=== PATIENT | female | born 1945 | race Caucasian/White ===

== ENCOUNTER → 2017-10-25 | Outpatient (CLI) | payer MEDICARE, OTHER ==
[~2017-10-25] MED LIST: ASPI325T17 PO; AZIT500T5 PO; CEFD300C37 PO; FERR325T18 PO; FURO-92 PO; FURO40TA6 PO; LISI1TAB7 PO; LISI5TAB7 PO; MAGN400T26 PO; METF500T9 PO; METFORMIN PO; Magnesium Oxide PO; PARO10TA56 PO; POLY17PO5 PO; POTA10TA5 PO; POTA20TA14 PO; SIMVASTATIN PO; TRAM50TA2 PO
[2017-10-25 16:56] LABS: ALANINE AMINOTRANSFERASE 23 U/L (12-78); ALBUMIN 3.8 g/dL (3.4-5.0); ANION GAP 3 mmol/L (5-15); CALCIUM 9.1 mg/dL (8.5-10.1); CHLORIDE 104 mmol/L (98-107); CREATININE 0.84 mg/dL (0.55-1.02)
[2017-10-25 16:58] LABS: ALKALINE PHOSPHATASE 112 U/L (45-117); BILIRUBIN,TOTAL 0.8 mg/dL (0.2-1.0); TOTAL PROTEIN 7.6 g/dL (6.4-8.2)
[2017-10-25 16:59] LABS: BASOPHILS # (AUTO) 0.08 x10^3/uL (0-0.1); BASOPHILS % (AUTO) 1 % (0-1); EOSINOPHILS # (AUTO) 0.32 x10^3/uL (0-0.4); EOSINOPHILS % (AUTO) 3 % (1-7); LYMPHOCYTES # (AUTO) 1.73 x10^3/uL (1-3.4); LYMPHOCYTES % (AUTO) 17 % (22-44); MD NO; MEAN CORPUSCULAR HEMOGLOBIN 33.1 pg (27.0-34.8); MEAN CORPUSCULAR VOLUME 97.3 fL (80-100); MEAN PLATELET VOLUME 8.4 fL (7.4-10.4); MONOCYTES # (AUTO) 0.65 x10^3/uL (0.2-0.8); MONOCYTES % (AUTO) 6 % (2-9); NEUTROPHILS # (AUTO) 7.55 x10^3/uL (1.8-6.8); NEUTROPHILS % (AUTO) 73 % (42-75); PLATELET COUNT 318 x10^3/uL (130-400)
[2017-10-25 17:33] LABS: MICROSCOPIC AUTO
[2017-10-25 17:40] LABS: CULTURE INDICATED? YES
== END | disposition home or self-care (01) ==
LOC: STAR 16:02
PROVIDERS: ATTEND Orthopaedic Surgery
DX: Z01.818 Encounter for other preprocedural examination (principal); M17.11 Unilateral primary osteoarthritis, right knee
CPT/HCPCS: 36415; 80053; 81001; 85025; 87081; 87086; 87147; 87806; 93005; G0475

== ENCOUNTER 2017-11-06 09:37 | Inpatient (IN) | payer MEDICARE, OTHER ==
[2017-10-25 16:46] VITALS: BP 114/75
[~2017-11-06] VITALS: Ht 162.6 cm; Wt 92.6 kg
[~2017-11-06 09:37] MED LIST changes: +ACETAMINOPHEN 500 MG TABLET PO ONE; +ALBUTEROL SULFATE 2.5 MG/3 ML NPPB PRN; +BACITRACIN 50,000 UNIT ONE; +BACTRIM PO; +BUPIVACAINE/PF 0.5% ONE; +CEFAZOLIN 1,000 MG ONE; +DEXAMETHASONE 4 MG/ML, 1ML ONE; +EPINEPHRINE 1 MG/ML, 1ML ONE; +FENTANYL PF 100 MCG/2ML IV PRN; +FENTANYL PF 100 MCG/2ML ONE; +FENTANYL PF 250 MCG/5ML ONE; +GABAPENTIN 300 MG CAPSULE PO ONE; +HALOPERIDOL 5 MG/ML IV PRN; +HYDROmorphone 2 MG/ML, 1ML ONE; +KETOROLAC 60 MG/2 ML ONE; +LABETALOL 5MG/ML, 20ML IV PRN; +LABETALOL 5MG/ML, 20ML ONE; +LACTATED RINGERS 1,000 ML IV SCH; +LIDOCAINE-MPF 1%, 2ML INFIL ONE; +LIDOCAINE-MPF 1%, 2ML ONE; +LIDOCAINE-MPF 2% ,5ML ONE; +MEPERIDINE/PF 25MG/0.5ML IVPush PRN; +MIDAZOLAM 1 MG/ML, 2ML ONE; +MUPIROCIN TP; +ONDANSETRON ODT 8 MG PO ONE; +PHENYLEPHRINE 10 MG/ML ONE; +PLEASE ENTER HEIGHT AND WEIGHT MC SCH; +PROMETHAZINE 25 MG/ML, 1ML IV PRN; +PROPOFOL 10 MG/ML, 20ML ONE; +ROCURONIUM 10MG/ML,5ML ONE; +ROPIvacaine/PF 0.2%, 20 ML ONE; +SODIUM CHLORIDE 0.9% 100 ML ONE; +TRANEXAMIC ACID 100 MG/ML, 10ML ONE; +VANCOMYCIN 1,000 MG ONE; +VANCOMYCIN PMX 1GM/200ML 200 ML IV STA; +hydrALAzine 20 MG/ML, 1ML IV PRN; +morphine SULFATE/PF 1 MG/ML, 10ML ONE
[2017-11-06] MEDS: HYDROmorphone 1 MG/ML, 1ML IV PRN ×2 (09:42→10:05)
[2017-11-06] MEDS ORDERED: LORazepam 2 MG/ML, 1ML IVPush PRN (10:00)
[2017-11-06] MEDS ORDERED: morphine SULFATE 10 MG/ML, 1ML IVPush PRN (10:00)
[2017-11-06] MEDS ORDERED: DIPHENHYDRAMINE 50 MG CAPSULE PO PRN (10:00)
[2017-11-06] MEDS ORDERED: ONDANSETRON 2MG/ML, 2ML IVPush PRN (10:00)
[2017-11-06] MEDS ORDERED: ZOLPIDEM 5MG TABLET PO PRN (10:00)
[2017-11-06] MEDS: SIMVASTATIN MC SCH ×2 (11:30→19:30)
[2017-11-06] MEDS ORDERED: metFORMIN 500 MG TABLET PO SCH ×2 (12:00→16:30)
[2017-11-06] MEDS ORDERED: FUROSEMIDE 40 MG TABLET PO SCH (12:00)
[2017-11-06] MEDS ORDERED: TRANEXAMIC ACID 1,000 MG in SODIUM CHLORIDE 0.9% 100 ML IV ONE (12:00)
[2017-11-06] MEDS ORDERED: LISINOPRIL 5 MG TABLET PO SCH ×2 (12:00→18:00)
[2017-11-06] MEDS: D5%-0.45% NACL 1,000 ML IV SCH ×3 (12:15→19:33)
[2017-11-06 13:07] VITALS: BP 121/74
[2017-11-06] MEDS: SIMVASTATIN 20 MG TABLET PO SCH (18:34)
[2017-11-06] MEDS: CEFAZOLIN PMX 1GM/50ML 50 ML IVPB SCH (18:34)
[2017-11-06] MEDS: metFORMIN 500 MG TABLET PO SCH (18:41)
[2017-11-06 19:20] VITALS: BP 93/51
[2017-11-06] MEDS ORDERED: POTASSIUM CHLORIDE 10 MEQ TABLET.ER PO SCH (21:00)
[2017-11-06] MEDS ORDERED: SIMVASTATIN 20 MG TABLET PO SCH (21:00)
[2017-11-06 23:22] VITALS: BP 96/57
[2017-11-07] VITALS (7 sets, daily range): BP systolic 76–153; BP diastolic 44–92
[2017-11-07] MEDS: D5%-0.45% NACL 1,000 ML IV SCH ×3 (00:33→06:10)
[2017-11-07] MEDS: CEFAZOLIN PMX 1GM/50ML 50 ML IVPB SCH ×2 (02:27→11:04)
[2017-11-07] MEDS: SIMVASTATIN MC SCH ×3 (03:30→18:51)
[2017-11-07] MEDS ORDERED: FUROSEMIDE 40 MG TABLET PO SCH (06:00)
[2017-11-07] MEDS: POTASSIUM CHLORIDE 20 MEQ TAB.ER.PRT PO SCH (06:00)
[2017-11-07] MEDS ORDERED: VANCOMYCIN PMX 1GM/200ML 200 ML IVPB ONE (07:00)
[2017-11-07] MEDS: ACETAMINOPHEN 325 MG TABLET PO PRN ×2 (13:54→18:12)
[2017-11-07 16:06] LABS: BASOPHILS % (AUTO) 0 % (0-1); EOSINOPHILS # (AUTO) 0.09 x10^3/uL (0-0.4); EOSINOPHILS % (AUTO) 1 % (1-7); LYMPHOCYTES # (AUTO) 0.84 x10^3/uL (1-3.4); LYMPHOCYTES % (AUTO) 8 % (22-44); MD NO; MEAN CORPUSCULAR HEMOGLOBIN 32.3 pg (27.0-34.8); MEAN CORPUSCULAR HGB CONC 33.2 g/dL (32.4-35.8); MEAN CORPUSCULAR VOLUME 97.2 fL (80-100); MEAN PLATELET VOLUME 7.8 fL (7.4-10.4); MONOCYTES % (AUTO) 10 % (2-9); NEUTROPHILS % (AUTO) 82 % (42-75); PLATELET COUNT 225 x10^3/uL (130-400); RED BLOOD COUNT 3.15 x10^6/uL (3.82-5.3); RED CELL DISTRIBUTION WIDTH 13.4 % (9.6-15.2)
[2017-11-07 16:14] LABS: ANION GAP 8 mmol/L (5-15); CALCIUM 7.8 mg/dL (8.5-10.1); CHLORIDE 105 mmol/L (98-107); CREATININE 0.96 mg/dL (0.55-1.02)
[2017-11-07 17:17] LABS: HEMOGLOBIN A1C 6.2 % (4.2-6.3)
[2017-11-07] MEDS: ASPIRIN 325 MG TABLET EC PO SCH (18:11)
[2017-11-07] MEDS: SIMVASTATIN 20 MG TABLET PO SCH (18:11)
[2017-11-07] MEDS: metFORMIN 500 MG TABLET PO SCH (18:11)
[2017-11-07] MEDS: DOCUSATE 100 MG CAPSULE PO SCH (21:00)
[2017-11-08] MEDS ORDERED: TRAM-47 PO (00:13)
[2017-11-08] MEDS: SIMVASTATIN MC SCH ×3 (00:53→18:56)
[2017-11-08 01:39] VITALS: BP 105/64
[2017-11-08] MEDS: POTASSIUM CHLORIDE 20 MEQ TAB.ER.PRT PO SCH (06:11)
[2017-11-08] MEDS: ASPIRIN 325 MG TABLET EC PO SCH ×2 (08:42→18:15)
[2017-11-08] MEDS: ACETAMINOPHEN 325 MG TABLET PO PRN ×2 (08:42→18:15)
[2017-11-08 08:50] VITALS: BP 99/62
[2017-11-08] MEDS: DOCUSATE 100 MG CAPSULE PO SCH ×2 (09:00→20:36)
[2017-11-08] MEDS ORDERED: FUROSEMIDE 20 MG/2 ML IV ONE (10:00)
[2017-11-08 12:47] VITALS: BP 104/64
[2017-11-08] MEDS: SIMVASTATIN 20 MG TABLET PO SCH (18:15)
[2017-11-08] MEDS: metFORMIN 500 MG TABLET PO SCH (18:15)
[2017-11-08 19:40] VITALS: BP 98/60
[2017-11-09 01:34] VITALS: BP 123/66
[2017-11-09] MEDS: POTASSIUM CHLORIDE 20 MEQ TAB.ER.PRT PO SCH (05:47)
[2017-11-09 07:10] VITALS: BP 101/66
[2017-11-09] MEDS: DOCUSATE 100 MG CAPSULE PO SCH (08:41)
[2017-11-09] MEDS: ASPIRIN 325 MG TABLET EC PO SCH ×2 (08:41→17:07)
[2017-11-09 13:29] VITALS: BP 114/66
[2017-11-09] MEDS ORDERED: FUROSEMIDE 20 MG/2 ML IV SCH (17:00)
[2017-11-09] MEDS: metFORMIN 500 MG TABLET PO SCH (17:07)
[2017-11-09] MEDS: SIMVASTATIN 20 MG TABLET PO SCH (17:07)
== END 2017-11-09 18:41 | disposition home or self-care (01) | DRG 469 ==
LOC: OUT 09:37 → 4NOR 11:10 → OUT 22:10
PROVIDERS: ADMIT Orthopaedic Surgery; ATTEND Orthopaedic Surgery
PROC: 0SRC0J9 Replacement of Right Knee Joint with Synthetic Substitute, Cemented, Open Approach (ICD-10-PCS; principal; 2017-11-06 07:30)
DX: M17.11 Unilateral primary osteoarthritis, right knee (principal); J96.01 Acute respiratory failure with hypoxia; I50.30 Unspecified diastolic (congestive) heart failure; I11.0 Hypertensive heart disease with heart failure; G47.33 Obstructive sleep apnea (adult) (pediatric); E11.9 Type 2 diabetes mellitus without complications; F32.9 Major depressive disorder, single episode, unspecified; I95.81 Postprocedural hypotension; Z82.5 Family history of asthma and other chronic lower respiratory diseases; Z80.0 Family history of malignant neoplasm of digestive organs; Z91.19 Patient's noncompliance with other medical treatment and regimen; Z88.8 Allergy status to other drugs, medicaments and biological substances; Z91.041 Radiographic dye allergy status; Z88.0 Allergy status to penicillin; Z91.013 Allergy to seafood; Z82.49 Family history of ischemic heart disease and other diseases of the circulatory system
CPT/HCPCS: 36415; 71045; 80048; 82962; 83036; 85018; 85025; C1713; G0378; J0171; J0690; J1100; J1170; J1885; J2250; J2274; J2704; J2795; J3010; J3370; J3490; Q0162; C1776; J1940; J2370; J7120

== ENCOUNTER 2018-09-05 07:58 | Outpatient (CLI) | payer MEDICARE ==
[~2018-09-05 07:58] MED LIST changes: -ACETAMINOPHEN 500 MG TABLET PO ONE; -ALBUTEROL SULFATE 2.5 MG/3 ML NPPB PRN; -BACITRACIN 50,000 UNIT ONE; -BUPIVACAINE/PF 0.5% ONE; -CEFAZOLIN 1,000 MG ONE; -DEXAMETHASONE 4 MG/ML, 1ML ONE; -EPINEPHRINE 1 MG/ML, 1ML ONE; -FENTANYL PF 100 MCG/2ML IV PRN; -FENTANYL PF 100 MCG/2ML ONE; -FENTANYL PF 250 MCG/5ML ONE; -GABAPENTIN 300 MG CAPSULE PO ONE; -HALOPERIDOL 5 MG/ML IV PRN; -HYDROmorphone 2 MG/ML, 1ML ONE; -KETOROLAC 60 MG/2 ML ONE; -LABETALOL 5MG/ML, 20ML IV PRN; -LABETALOL 5MG/ML, 20ML ONE; -LACTATED RINGERS 1,000 ML IV SCH; -LIDOCAINE-MPF 1%, 2ML INFIL ONE; -LIDOCAINE-MPF 1%, 2ML ONE; -LIDOCAINE-MPF 2% ,5ML ONE; -MEPERIDINE/PF 25MG/0.5ML IVPush PRN; -MIDAZOLAM 1 MG/ML, 2ML ONE; -ONDANSETRON ODT 8 MG PO ONE; -PHENYLEPHRINE 10 MG/ML ONE; -PLEASE ENTER HEIGHT AND WEIGHT MC SCH; -PROMETHAZINE 25 MG/ML, 1ML IV PRN; -PROPOFOL 10 MG/ML, 20ML ONE; -ROCURONIUM 10MG/ML,5ML ONE; -ROPIvacaine/PF 0.2%, 20 ML ONE; -SODIUM CHLORIDE 0.9% 100 ML ONE; +TRAM-47 PO; -TRANEXAMIC ACID 100 MG/ML, 10ML ONE; -VANCOMYCIN 1,000 MG ONE; -VANCOMYCIN PMX 1GM/200ML 200 ML IV STA; -hydrALAzine 20 MG/ML, 1ML IV PRN; -morphine SULFATE/PF 1 MG/ML, 10ML ONE
== END 2018-09-05 23:59 | disposition home or self-care (01) ==
LOC: CFH 07:58
PROVIDERS: ATTEND Nurse Practitioner Family
DX: Z12.31 Encounter for screening mammogram for malignant neoplasm of breast (principal); M81.8 Other osteoporosis without current pathological fracture
CPT/HCPCS: 77063; 77067; 77080

== ENCOUNTER 2019-12-05 16:56 | Observation (INO) | payer MEDICARE ==
[~2019-12-05] VITALS: Ht 160 cm; Wt 94.9 kg
[~2019-12-05 16:56] MED LIST changes: +AZIT500T10 PO; -AZIT500T5 PO; +LISI1TAB20 PO; -LISI1TAB7 PO; +METF-754 PO; -METF500T9 PO
--- NOTE | 2019-12-05 17:06 | NUR ---
PATIENT BETWEEN 88-90% ON RA, PLACED ON 2L NC IN TRIAGE. DENIES SOB OR HX COPD
[2019-12-05] MEDS ORDERED: PROPARACAINE OPHTH 0.5%, 15ML ONE (17:12)
--- NOTE | 2019-12-05 17:26 | NUR ---
PT SENT OVER BY DR SANTOS FROM [facility]. PT REPORTS WAKING UP THIS AM AND NOTING THAT SHE COULD NOT SEE OUT OF HER LEFT EYE, STATES IT WAS "SLATE MATAM[place]OS OVER THAT VISION FIELD" PT WENT TO WORK AND THROUGHOUT THE DAY SOME SPOTS OF VISION CAME BACK BUT THEN WENT AWAY AGAIN AND NOW HAS ONE SMALL VISUAL [place] ON LEFT EYE. DENIES EVANS, DIZZINESS, LOSS OF SENSATION. GROSS NEURO INTACT ASIDE FROM ONE SIDED VISION LOSS. PT EYES DILATED BY DR SANTOS DINKEY ENGINE FIRER, NOTE FROM HIM STATES HE WANTS A STAT STROKE WORKOUT, CONCERNS REGARDING OCCLUSION OF RETINAL ARTERY, NO EMBOLI NOTED IN HIS ASSESSMENT. CHARMAINE PAVON MD AT FOR EVAL AND POC.
--- NOTE | 2019-12-05 17:33 | NUR ---
PT TO MRI VIA [facility], P/W/D, NO CHANGE IN CONDITION.
--- NOTE | 2019-12-05 18:22 | NUR ---
pt in MRI at this time.
[2019-12-05 18:44] LABS: BASOPHILS % (AUTO) 1 % (0-1); EOSINOPHILS % (AUTO) 3 % (1-7); LYMPHOCYTES % (AUTO) 11 % (22-44); MEAN CORPUSCULAR HEMOGLOBIN 31.7 pg (27.0-34.8); MEAN CORPUSCULAR HGB CONC 33.1 g/dL (32.4-35.8); MEAN PLATELET VOLUME 7.5 fL (7.4-10.4); MONOCYTES % (AUTO) 8 % (2-9); NEUTROPHILS % (AUTO) 77 % (42-75); PLATELET COUNT 266 x10^3/uL (130-400); RED BLOOD COUNT 4.57 x10^6/uL (3.82-5.3); RED CELL DISTRIBUTION WIDTH 14.4 % (9.6-15.2)
[2019-12-05 18:45] LABS: HCT (SEDRATE) 44.2 % (34.6-47.8)
[2019-12-05 18:46] LABS: MD NO
--- NOTE | 2019-12-05 18:50 | NUR ---
PT BACK FROM MRI AT THIS TIME, NAD, SITTING IN WHEELAHIR, NO CHANGE IN CONDITION. WCTM.
[2019-12-05 18:53] LABS: INTERNATIONAL NORMALIZED RATIO 0.93 (0.93-1.1); PROTHROMBIN TIME 9.6 Seconds (9.6-11.5)
[2019-12-05 18:55] LABS: ALANINE AMINOTRANSFERASE 32 U/L (12-78); ALBUMIN 3.3 g/dL (3.4-5.0); ANION GAP 4 mmol/L (5-15); CALCIUM 8.9 mg/dL (8.5-10.1); CHLORIDE 102 mmol/L (98-107); CREATININE 0.85 mg/dL (0.55-1.02)
[2019-12-05] MEDS ORDERED: ASPIRIN 81 MG TABLET CHEW PO ONE (19:00)
[2019-12-05 19:01] LABS: ALKALINE PHOSPHATASE 112 U/L (45-117); BILIRUBIN,TOTAL 0.6 mg/dL (0.2-1.0); C-REACTIVE PROTEIN, QUANT 2.13 mg/dL (0.02-0.49); TOTAL PROTEIN 6.9 g/dL (6.4-8.2)
[2019-12-05] MEDS ORDERED: ASPIRIN 81 MG TABLET CHEW ONE (19:05)
--- NOTE | 2019-12-05 19:05 | NUR ---
BEDSIDE REPORT FROM SAVANNA HARRISON RESTING ON ARABELLA ALVAREZ
--- NOTE | 2019-12-05 19:29 | NUR ---
ALL RESULTS BACK AT THIS TIME CHART UP FOR RECHECK
[2019-12-05] MEDS ORDERED: ONDANSETRON ODT 4 MG PO PRN (20:30)
[2019-12-05] MEDS ORDERED: BISACODYL 10 MG SUPP PR PRN (20:30)
[2019-12-05] MEDS ORDERED: POLYETHYLENE GLYCOL 17 GM PACKET PO PRN (20:30)
[2019-12-05] MEDS ORDERED: ACETAMINOPHEN 325 MG TABLET PO PRN (20:30)
[2019-12-05] MEDS ORDERED: SIMV5TAB14 PO (20:35)
[2019-12-05] MEDS ORDERED: HEPARIN 5,000 UNITS/ML, 1ML ONE (20:37)
[2019-12-05] MEDS ORDERED: ATORVASTATIN 40 MG TABLET ONE (20:37)
[2019-12-05] MEDS: HEPARIN 5,000 UNITS/ML, 1ML SQ SCH (20:43)
[2019-12-05] MEDS: POTASSIUM CHLORIDE 10 MEQ TABLET.ER PO SCH (20:44)
--- NOTE | 2019-12-05 20:46 | NUR ---
TASK RN: PT NAD, MEDICATED PER MAR, REQUESTING MEAL. PT WAITING FOR ADMIT BED. WCTM.
--- NOTE | 2019-12-05 20:55 | NUR ---
PT REFUSING IV AT THIS TIME STS SHE IS FEARFUL OF BEING GIVEN MEDICATIONS WITHOUT PROPER INFORMATION, HOSPITALIST BRIAN UPDATED STS SHE IS OK TO BE ADMITTED WITHOUT AN IV IN PLACE.
--- NOTE | 2019-12-05 20:56 | NUR ---
PT PROVIDED TURKEY SANDWICH REQ
[2019-12-05] MEDS ORDERED: ATORVASTATIN 40 MG TABLET PO SCH (21:00)
--- NOTE | 2019-12-05 21:09 | NUR ---
REPORT TO RAMANDEEP CORRALES READY FOR TRANSFER TO [facility]
[2019-12-05 21:33] VITALS: BP 121/60
[2019-12-05] MEDS: SODIUM CHLORIDE FLUSH 10ML SYR IVF SCH (22:37)
[2019-12-06 00:06] VITALS: BP 113/66
[2019-12-06 04:43] LABS: BASOPHILS % (AUTO) 1 % (0-1); EOSINOPHILS % (AUTO) 5 % (1-7); LYMPHOCYTES % (AUTO) 11 % (22-44); MD NO; MEAN CORPUSCULAR HEMOGLOBIN 31.5 pg (27.0-34.8); MEAN CORPUSCULAR HGB CONC 32.5 g/dL (32.4-35.8); MEAN PLATELET VOLUME 7.5 fL (7.4-10.4); MONOCYTES % (AUTO) 8 % (2-9); NEUTROPHILS % (AUTO) 75 % (42-75); PLATELET COUNT 248 x10^3/uL (130-400); RED BLOOD COUNT 4.36 x10^6/uL (3.82-5.3); RED CELL DISTRIBUTION WIDTH 14.3 % (9.6-15.2)
[2019-12-06 04:51] LABS: CALCIUM 8.2 mg/dL (8.5-10.1); CHLORIDE 106 mmol/L (98-107)
[2019-12-06 04:57] LABS: ANION GAP 6 mmol/L (5-15); CHOL/HDL RATIO 2.7; CHOLESTEROL, TOTAL 153 mg/dL (140-239); HDL CHOL % 37 % (28-40); HDL CHOLESTEROL (DIRECT) 56 mg/dL (40-60); LDL CHOLESTEROL,CALCULATED 50 mg/dL (54-169); LDL/HDL RATIO 0.9 (0.5-3.0); TRIGLYCERIDES 234 mg/dL (50-200); VLDL CHOLESTEROL 47 mg/dL (0-25)
[2019-12-06] MEDS: HEPARIN 5,000 UNITS/ML, 1ML SQ SCH ×2 (05:48→12:33)
[2019-12-06] MEDS ORDERED: ASPIRIN 81 MG TABLET EC PO SCH (06:00)
[2019-12-06] MEDS: SODIUM CHLORIDE FLUSH 10ML SYR IVF SCH (08:14)
[2019-12-06] MEDS: POTASSIUM CHLORIDE 10 MEQ TABLET.ER PO SCH (08:16)
[2019-12-06 08:30] VITALS: BP 116/72
[2019-12-06 08:45] VITALS: BP 113/72
[2019-12-06] MEDS ORDERED: metFORMIN XR 500 MG TAB.ER.24H PO SCH (09:00)
[2019-12-06] MEDS ORDERED: LISINOPRIL 5 MG TABLET PO SCH (09:00)
[2019-12-06] MEDS ORDERED: SENNA/DOCUSATE TABLET PO SCH (09:00)
[2019-12-06] MEDS ORDERED: FUROSEMIDE 40 MG TABLET PO SCH (09:00)
[2019-12-06 13:59] VITALS: BP 121/67
[2019-12-06] MEDS ORDERED: ASPI81TA45 PO (16:59)
== END 2019-12-06 18:06 | disposition home or self-care (01) ==
LOC: ED 19:25 → INTOOBSV 19:52 → EDIP 19:52 → 5SO 21:19
PROVIDERS: ADMIT Family Medicine; ATTEND Family Medicine
DX: H34.12 Central retinal artery occlusion, left eye (principal); I11.0 Hypertensive heart disease with heart failure; I50.9 Heart failure, unspecified; E11.9 Type 2 diabetes mellitus without complications; F32.9 Major depressive disorder, single episode, unspecified; J45.909 Unspecified asthma, uncomplicated; I35.0 Nonrheumatic aortic (valve) stenosis; I66.8 Occlusion and stenosis of other cerebral arteries; E66.9 Obesity, unspecified; Z87.19 Personal history of other diseases of the digestive system; Z88.0 Allergy status to penicillin; Z79.899 Other long term (current) drug therapy; Z79.84 Long term (current) use of oral hypoglycemic drugs; Z90.710 Acquired absence of both cervix and uterus
CPT/HCPCS: 36415; 70544; 70551; 80048; 80053; 80061; 83036; 85025; 85610; 85651; 85730; 86140; 93005; 93306; 96372; 99291; G0378; J1644; 90471

== ENCOUNTER → 2020-03-04 | Outpatient (CLI) | payer MEDICARE ==
[~2020-03-04] MED LIST changes: +ASPI81TA45 PO; +SIMV5TAB14 PO
== END | disposition home or self-care (01) ==
LOC: CVU 14:42
PROVIDERS: ATTEND Nurse Practitioner Family
DX: I35.8 Other nonrheumatic aortic valve disorders (principal); I11.9 Hypertensive heart disease without heart failure; R01.1 Cardiac murmur, unspecified
CPT/HCPCS: 93306

== ENCOUNTER 2020-03-06 07:22 | Emergency (ER) | payer MEDICARE ==
--- NOTE | 2020-03-06 07:40 | NUR ---
patient arrives with complaints of dizziness for a week, and sob for one week. patient has felt weak, and difficulty getting around.
[2020-03-06 08:42] LABS: BASOPHILS % (AUTO) 1 % (0-1); EOSINOPHILS % (AUTO) 5 % (1-7); LYMPHOCYTES % (AUTO) 17 % (22-44); MEAN CORPUSCULAR HGB CONC 33.3 g/dL (32.4-35.8); MEAN PLATELET VOLUME 7.6 fL (7.4-10.4); MONOCYTES % (AUTO) 10 % (2-9); NEUTROPHILS % (AUTO) 67 % (42-75); PLATELET COUNT 227 x10^3/uL (130-400); RED BLOOD COUNT 4.29 x10^6/uL (3.82-5.3); RED CELL DISTRIBUTION WIDTH 16.4 % (9.6-15.2)
[2020-03-06 08:43] LABS: MD NO
[2020-03-06 08:55] LABS: ALANINE AMINOTRANSFERASE 31 U/L (12-78); ALBUMIN 3.2 g/dL (3.4-5.0); ANION GAP 4 mmol/L (5-15); CHLORIDE 107 mmol/L (98-107)
--- NOTE | 2020-03-06 08:56 | NUR ---
patient sat 90-92, placed on two liters quickly came up
[2020-03-06 08:59] LABS: ALKALINE PHOSPHATASE 91 U/L (45-117); BILIRUBIN,TOTAL 0.9 mg/dL (0.2-1.0); TOTAL PROTEIN 6.3 g/dL (6.4-8.2); TROPONIN I < 0.015 ng/mL (0.000-0.045)
[2020-03-06 09:09] LABS: INTERNATIONAL NORMALIZED RATIO 0.95 (0.93-1.1); PROTHROMBIN TIME 10.1 Seconds (9.6-11.5)
--- NOTE | 2020-03-06 09:38 | NUR ---
stand by assist for anal exam, no complications.
--- NOTE | 2020-03-06 10:02 | NUR ---
patient refused cta secondary to a code blue post dye 35 years ago. md crane adn stated to then proceed with no contrast.
--- NOTE | 2020-03-06 10:05 | NUR ---
patient left for ct
--- NOTE | 2020-03-06 10:19 | NUR ---
took patient for walk with no oxygen, she is steady 90-92% averaging 91% on room air after no oxygen for 5 minutes
[2020-03-06] MEDS ORDERED: DIPHENHYDRAMINE 50 MG/ML, 1ML IVPush PRN (10:30)
[2020-03-06 11:32] VITALS: BP 109/70
== END 2020-03-06 11:33 | disposition home or self-care (01) ==
LOC: ED 08:45
DX: R06.00 Dyspnea, unspecified (principal); K64.8 Other hemorrhoids; R42 Dizziness and giddiness; I44.4 Left anterior fascicular block; R06.02 Shortness of breath
CPT/HCPCS: 36415; 71045; 71250; 80053; 83880; 84443; 84484; 85025; 85610; 85730; 93005; 99285

== ENCOUNTER 2020-03-12 09:32 | Day surgery (SDC) | payer MEDICARE ==
[~2020-03-12] VITALS: Ht 162.6 cm; Wt 90.9 kg
[2020-03-12 09:56] VITALS: BP 135/70
[2020-03-12] MEDS ORDERED: PLEASE ENTER HEIGHT AND WEIGHT MC SCH (10:00)
[2020-03-12] MEDS ORDERED: SODIUM CHLORIDE 0.9% 1,000 ML IV SCH ×2 (10:00→13:00)
[2020-03-12] MEDS ORDERED: DIPH25CA61 PO (10:16)
[2020-03-12] MEDS ORDERED: IBUP-1221 PO (10:16)
[2020-03-12] MEDS ORDERED: VALS40TA2 PO (10:16)
[2020-03-12] MEDS ORDERED: ERGO500018 PO (10:16)
[2020-03-12] MEDS ORDERED: POTA20TA6 PO (10:16)
[2020-03-12] MEDS ORDERED: MIDAZOLAM 1 MG/ML, 5ML ONE (11:50)
[2020-03-12] MEDS ORDERED: FENTANYL PF 100 MCG/2ML ONE (11:50)
[2020-03-12] MEDS ORDERED: TICAGRELOR 90 MG TABLET ONE (11:51)
[2020-03-12] MEDS ORDERED: VERAPAMIL 2.5 MG/ML, 2ML ONE (11:51)
[2020-03-12] MEDS ORDERED: LIDOCAINE 2%, 20ML ONE (11:51)
[2020-03-12] MEDS ORDERED: HEPARIN 1,000 UNITS/ML, 10ML ONE (11:51)
[2020-03-12] MEDS ORDERED: BIVALIRUDIN 250 MG ONE (11:51)
[2020-03-12] MEDS ORDERED: NITROGLYCERIN 5 MG/ML, 10ML ONE (11:51)
[2020-03-12] MEDS ORDERED: DIPHENHYDRAMINE 50 MG/ML, 1ML ONE (12:17)
[2020-03-12] MEDS ORDERED: methylPREDNISolone SOD SUCC 125 MG/2 ML ONE (12:17)
== END 2020-03-12 14:25 | disposition home or self-care (01) ==
LOC: CACL 09:32
PROVIDERS: ATTEND Internal Medicine Cardiovascular Disease
DX: Z01.810 Encounter for preprocedural cardiovascular examination (principal); I35.0 Nonrheumatic aortic (valve) stenosis; I10 Essential (primary) hypertension; G47.33 Obstructive sleep apnea (adult) (pediatric); I69.312 Visuospatial deficit and spatial neglect following cerebral infarction; E11.65 Type 2 diabetes mellitus with hyperglycemia; E78.5 Hyperlipidemia, unspecified; E55.9 Vitamin D deficiency, unspecified; E66.01 Morbid (severe) obesity due to excess calories; Z68.35 Body mass index [BMI] 35.0-35.9, adult; Z79.82 Long term (current) use of aspirin; Z79.84 Long term (current) use of oral hypoglycemic drugs; Z79.1 Long term (current) use of non-steroidal anti-inflammatories (NSAID); Z79.899 Other long term (current) drug therapy; Z88.0 Allergy status to penicillin; Z88.5 Allergy status to narcotic agent; Z91.013 Allergy to seafood; Z91.041 Radiographic dye allergy status
CPT/HCPCS: 93454; 99156; C1769; C1894; J1200; J1644; J2250; J2930; J3010; Q9967; J0583

== ENCOUNTER → 2020-03-19 | Outpatient (CLI) | payer MEDICARE ==
[~2020-03-19] MED LIST changes: +DIPH25CA61 PO; +ERGO500018 PO; +IBUP-1221 PO; +POTA20TA6 PO; +VALS40TA2 PO
== END | disposition home or self-care (01) ==
LOC: CVU 08:27
PROVIDERS: ATTEND Internal Medicine Cardiovascular Disease
DX: Z01.810 Encounter for preprocedural cardiovascular examination (principal); I35.0 Nonrheumatic aortic (valve) stenosis; I25.10 Atherosclerotic heart disease of native coronary artery without angina pectoris; J98.11 Atelectasis; J84.10 Pulmonary fibrosis, unspecified; K44.9 Diaphragmatic hernia without obstruction or gangrene; Z90.49 Acquired absence of other specified parts of digestive tract; N20.0 Calculus of kidney; K57.90 Diverticulosis of intestine, part unspecified, without perforation or abscess without bleeding; I65.23 Occlusion and stenosis of bilateral carotid arteries; Z20.822 Contact with and (suspected) exposure to COVID-19
CPT/HCPCS: 71250; 74176; 87635; 93880; 93978

== ENCOUNTER 2020-03-24 06:00 | Inpatient (IN) | payer MEDICARE ==
[~2020-03-24] VITALS: Ht 162.6 cm; Wt 90.0 kg
[2020-03-24 06:23] VITALS: BP 132/71
[2020-03-24] MEDS ORDERED: FAMOTIDINE 20 MG/2 ML IVPush ONE (06:30)
[2020-03-24] MEDS ORDERED: methylPREDNISolone SOD SUCC 125 MG/2 ML IVPush ONE (06:30)
[2020-03-24] MEDS ORDERED: ONDANSETRON 2MG/ML, 2ML IVPush PRN (06:30)
[2020-03-24] MEDS ORDERED: DIPHENHYDRAMINE 50 MG/ML, 1ML IVPush ONE (06:30)
[2020-03-24 06:37] LABS: BASOPHILS % (AUTO) 1 % (0-1); EOSINOPHILS % (AUTO) 4 % (1-7); LYMPHOCYTES % (AUTO) 15 % (22-44); MEAN CORPUSCULAR HEMOGLOBIN 32.3 pg (27.0-34.8); MEAN CORPUSCULAR HGB CONC 33.4 g/dL (32.4-35.8); MEAN PLATELET VOLUME 7.4 fL (7.4-10.4); MONOCYTES % (AUTO) 9 % (2-9); NEUTROPHILS % (AUTO) 71 % (42-75); PLATELET COUNT 249 x10^3/uL (130-400); RED CELL DISTRIBUTION WIDTH 15.9 % (9.6-15.2)
[2020-03-24 06:38] LABS: MD NO
[2020-03-24 06:47] LABS: INTERNATIONAL NORMALIZED RATIO 0.94 (0.93-1.1); PROTHROMBIN TIME 10.1 Seconds (9.6-11.5)
[2020-03-24 06:50] LABS: ALANINE AMINOTRANSFERASE 25 U/L (12-78); ALBUMIN 3.2 g/dL (3.4-5.0); ANION GAP 5 mmol/L (5-15); CALCIUM 8.7 mg/dL (8.5-10.1); CHLORIDE 106 mmol/L (98-107); CREATININE 0.78 mg/dL (0.55-1.02)
[2020-03-24 06:52] LABS: ALKALINE PHOSPHATASE 87 U/L (45-117); BILIRUBIN,TOTAL 0.6 mg/dL (0.2-1.0); TOTAL PROTEIN 6.6 g/dL (6.4-8.2)
[2020-03-24] MEDS ORDERED: VALS40TA2 PO (06:57)
[2020-03-24] MEDS ORDERED: DIPHENHYDRAMINE 50 MG/ML, 1ML ONE (07:00)
[2020-03-24] MEDS ORDERED: methylPREDNISolone SOD SUCC 125 MG/2 ML ONE (07:00)
[2020-03-24] MEDS ORDERED: PROTAMINE SULFATE 10 MG/ML, 5ML ONE (07:15)
[2020-03-24] MEDS ORDERED: FENTANYL PF 250 MCG/5ML ONE (07:16)
[2020-03-24] MEDS ORDERED: PROPOFOL 10 MG/ML, 20ML ONE (07:17)
[2020-03-24] MEDS ORDERED: SUCCINYLCHOLINE 20 MG/ML, 10ML ONE (07:18)
[2020-03-24] MEDS ORDERED: HEPARIN 1,000 UNITS/ML, 10ML ONE (07:19)
[2020-03-24] MEDS ORDERED: PHENYLEPHRINE 10 MG/ML ONE (07:23)
[2020-03-24] MEDS ORDERED: ROCURONIUM 10 MG/ML,10ML ONE (07:30)
[2020-03-24] MEDS ORDERED: ONDANSETRON 2MG/ML, 2ML ONE (07:30)
[2020-03-24] MEDS ORDERED: DEXAMETHASONE 4 MG/ML, 1ML ONE (07:30)
[2020-03-24] MEDS ORDERED: SUGAMMADEX 200 MG/2 ML IVPush ONE (08:20)
[2020-03-24] MEDS ORDERED: ACETAMINOPHEN 325 MG TABLET PO PRN (09:00)
[2020-03-24] MEDS ORDERED: LABETALOL 20 MG/4 ML IVPush PRN (09:00)
[2020-03-24] MEDS ORDERED: hydrALAzine 20 MG/ML, 1ML IVPush PRN (09:00)
[2020-03-24] MEDS ORDERED: DIPHENHYDRAMINE 25 MG CAPSULE PO PRN (09:00)
[2020-03-24] MEDS: ASPIRIN 81 MG TABLET EC PO SCH (09:35)
[2020-03-24] MEDS ORDERED: ASPIRIN 81 MG TABLET CHEW ONE (09:37)
[2020-03-24] MEDS: metFORMIN XR 500 MG TAB.ER.24H PO SCH ×2 (11:07→20:08)
[2020-03-24] MEDS: POTASSIUM CHLORIDE 10 MEQ TABLET.ER PO SCH ×2 (11:07→20:49)
[2020-03-24] MEDS: LOSARTAN 50MG TABLET PO SCH ×2 (11:08→20:50)
[2020-03-24 13:16] VITALS: BP 131/74
[2020-03-24] MEDS: FUROSEMIDE 40 MG TABLET PO SCH (14:07)
[2020-03-24 20:20] VITALS: BP 96/55
[2020-03-24 20:45] VITALS: BP 104/61
[2020-03-24] MEDS ORDERED: SIMVASTATIN 20 MG TABLET PO SCH (21:00)
[2020-03-25 02:06] VITALS: BP 108/67
[2020-03-25 06:01] LABS: BASOPHILS % (AUTO) 0 % (0-1); EOSINOPHILS % (AUTO) 0 % (1-7); LYMPHOCYTES % (AUTO) 6 % (22-44); MEAN CORPUSCULAR HEMOGLOBIN 32.4 pg (27.0-34.8); MEAN CORPUSCULAR HGB CONC 33.1 g/dL (32.4-35.8); MEAN PLATELET VOLUME 7.4 fL (7.4-10.4); MONOCYTES % (AUTO) 8 % (2-9); NEUTROPHILS % (AUTO) 86 % (42-75); PLATELET COUNT 189 x10^3/uL (130-400); RED BLOOD COUNT 3.89 x10^6/uL (3.82-5.3); RED CELL DISTRIBUTION WIDTH 15.6 % (9.6-15.2)
[2020-03-25 06:02] LABS: MD NO
[2020-03-25 06:10] LABS: CALCIUM 8.8 mg/dL (8.5-10.1); CHLORIDE 107 mmol/L (98-107)
[2020-03-25 06:14] LABS: ANION GAP 5 mmol/L (5-15); CREATININE 0.85 mg/dL (0.55-1.02)
[2020-03-25] MEDS: ASPIRIN 81 MG TABLET EC PO SCH (06:20)
[2020-03-25 06:59] VITALS: BP 117/74
[2020-03-25] MEDS: LOSARTAN 50MG TABLET PO SCH ×2 (09:00→09:41)
[2020-03-25] MEDS: metFORMIN XR 500 MG TAB.ER.24H PO SCH ×2 (09:00→09:41)
[2020-03-25] MEDS: FUROSEMIDE 40 MG TABLET PO SCH (09:41)
[2020-03-25] MEDS: POTASSIUM CHLORIDE 10 MEQ TABLET.ER PO SCH (09:41)
== END 2020-03-25 10:46 | disposition home or self-care (01) | DRG 266 ==
LOC: ORIP 06:03 → 5SO 10:01 → DCLOUNGE 03-25 10:27
PROVIDERS: ADMIT Internal Medicine Cardiovascular Disease; ATTEND Internal Medicine Cardiovascular Disease
PROC: B24BZZ4 Ultrasonography of Heart with Aorta, Transesophageal (ICD-10-PCS; 2020-03-24)
PROC: B3101ZZ Fluoroscopy of Thoracic Aorta using Low Osmolar Contrast (ICD-10-PCS; 2020-03-24)
PROC: 02RF38Z Replacement of Aortic Valve with Zooplastic Tissue, Percutaneous Approach (ICD-10-PCS; principal; 2020-03-24 07:30)
DX: I35.0 Nonrheumatic aortic (valve) stenosis (principal); Z00.6 Encounter for examination for normal comparison and control in clinical research program; I50.33 Acute on chronic diastolic (congestive) heart failure; E11.9 Type 2 diabetes mellitus without complications; E78.5 Hyperlipidemia, unspecified; I11.0 Hypertensive heart disease with heart failure; Z91.041 Radiographic dye allergy status; I95.9 Hypotension, unspecified; Z88.6 Allergy status to analgesic agent; Z88.0 Allergy status to penicillin; Z91.013 Allergy to seafood
CPT/HCPCS: 33361; 36415; 76937; 80048; 80053; 85025; 85347; 85610; 86850; 86900; 86923; 93005; 93312; 93321; 93325; 93355; C1760; C1769; C1894; C8929; G0378; J1100; J1644; J2405; J2704; J2720; J3010; Q9957; J0330; J1200; J2370; J2930; Q9967

== ENCOUNTER 2020-03-31 08:39 | Inpatient (IN) | payer MEDICARE ==
[~2020-03-31] VITALS: Ht 162.6 cm; Wt 95.6 kg
[2020-03-31] MEDS ORDERED: SODIUM CHLORIDE 0.9% 250 ML IV ONE (09:30)
[2020-03-31 09:34] LABS: BASOPHILS % (AUTO) 0 % (0-1); EOSINOPHILS % (AUTO) 4 % (1-7); LYMPHOCYTES % (AUTO) 17 % (22-44); MEAN CORPUSCULAR HEMOGLOBIN 32.5 pg (27.0-34.8); MEAN CORPUSCULAR HGB CONC 33.8 g/dL (32.4-35.8); MEAN PLATELET VOLUME 7.8 fL (7.4-10.4); MONOCYTES % (AUTO) 13 % (2-9); NEUTROPHILS % (AUTO) 66 % (42-75); PLATELET COUNT 188 x10^3/uL (130-400); RED BLOOD COUNT 4.13 x10^6/uL (3.82-5.3); RED CELL DISTRIBUTION WIDTH 15.4 % (9.6-15.2)
[2020-03-31 09:38] LABS: MD NO
[2020-03-31 09:43] LABS: ANION GAP 6 mmol/L (5-15); CALCIUM 8.5 mg/dL (8.5-10.1); CHLORIDE 111 mmol/L (98-107); CREATININE 0.71 mg/dL (0.55-1.02)
--- NOTE | 2020-03-31 10:07 | NUR ---
PT CALMLY LAYING ON GURNEY, NAD, DAUGHTER AT BEDSIDE. CALL LIGHT WITHIN REACH, BED RAILS UP X2. NO NEEDS AT THIS TIME.
[2020-03-31] MEDS ORDERED: SODIUM CHLORIDE FLUSH 10ML SYR IVF ONE (10:30)
--- NOTE | 2020-03-31 10:41 | NUR ---
PT CONTINUES CALMLY LAYING ON GURRADHA, NAD, DAUGHTER AT BEDSIDE. CALL LIGHT WITHIN REACH, BED RAILS UP X2. NO NEEDS AT THIS TIME. PT AND DAUGHTER NOTFIED OF NPO DIET.
[2020-03-31] MEDS ORDERED: DIPHENHYDRAMINE 25 MG CAPSULE PO PRN (11:00)
[2020-03-31] MEDS ORDERED: BISACODYL 10 MG SUPP PR PRN (11:00)
[2020-03-31] MEDS ORDERED: VANCOMYCIN PMX 1GM/200ML 200 ML IVPB SCH (11:00)
[2020-03-31] MEDS ORDERED: ACETAMINOPHEN 650 MG/20.3 ML UDC PO PRN (11:00)
[2020-03-31] MEDS ORDERED: ONDANSETRON 2MG/ML, 2ML IV PRN (11:00)
[2020-03-31] MEDS: SODIUM CHLORIDE 0.9% 1,000 ML IV SCH ×2 (11:59→19:00)
--- NOTE | 2020-03-31 12:12 | NUR ---
Pt to be admitted to CARDIAC TELE, room 525. Report called to MICAH.
[2020-03-31 12:14] VITALS: BP 138/84
[2020-03-31] MEDS ORDERED: LIDOCAINE 2%, 20ML ONE (12:43)
[2020-03-31] MEDS ORDERED: methylPREDNISolone SOD SUCC 125 MG/2 ML ONE (12:43)
[2020-03-31] MEDS ORDERED: MIDAZOLAM 1 MG/ML, 5ML ONE (12:44)
[2020-03-31] MEDS ORDERED: FENTANYL PF 100 MCG/2ML ONE (12:44)
[2020-03-31] MEDS ORDERED: VANCOMYCIN PMX 1GM/200ML 200 ML ONE (12:45)
[2020-03-31] MEDS ORDERED: VANCOMYCIN 500 MG ONE (12:45)
[2020-03-31] MEDS ORDERED: DIPHENHYDRAMINE 50 MG/ML, 1ML ONE (12:45)
[2020-03-31] MEDS ORDERED: DIPHENHYDRAMINE 50 MG/ML, 1ML IVPush ONE (13:00)
[2020-03-31] MEDS ORDERED: methylPREDNISolone SOD SUCC 125 MG/2 ML IVPush ONE (13:00)
[2020-03-31] MEDS ORDERED: ACETAMINOPHEN 325 MG TABLET PO PRN (14:30)
[2020-03-31] MEDS ORDERED: HOLD MEDICATION MC PRN (14:30)
[2020-03-31 18:59] VITALS: BP 108/68
[2020-03-31] MEDS: SODIUM CHLORIDE FLUSH 10ML SYR IVF SCH ×2 (20:10)
[2020-03-31] MEDS ORDERED: SIMVASTATIN 20 MG TABLET PO SCH (21:00)
[2020-04-01 00:34] VITALS: BP 135/80
[2020-04-01] MEDS: SODIUM CHLORIDE 0.9% 1,000 ML IV SCH ×2 (03:00→08:34)
[2020-04-01] MEDS ORDERED: ASPIRIN 81 MG TABLET EC PO SCH (06:00)
[2020-04-01 06:53] VITALS: BP 117/75
[2020-04-01] MEDS ORDERED: metFORMIN 500 MG TABLET PO SCH (08:00)
[2020-04-01] MEDS: SODIUM CHLORIDE FLUSH 10ML SYR IVF SCH ×2 (08:39)
[2020-04-01] MEDS ORDERED: ACET325T26 PO (08:54)
[2020-04-01] MEDS ORDERED: POTASSIUM CHLORIDE 10 MEQ TABLET.ER PO SCH (09:00)
[2020-04-01] MEDS ORDERED: FUROSEMIDE 40 MG TABLET PO SCH (09:00)
== END 2020-04-01 11:22 | disposition home or self-care (01) | DRG 242 ==
LOC: ED 09:12 → EDIP 10:49 → 5SO 12:51 → DCLOUNGE 04-01 11:04
PROVIDERS: ADMIT Internal Medicine Clinical Cardiac Electrophysiology; ATTEND Internal Medicine Clinical Cardiac Electrophysiology
PROC: 02H63JZ Insertion of Pacemaker Lead into Right Atrium, Percutaneous Approach (ICD-10-PCS; principal; 2020-03-31)
PROC: 02HK3JZ Insertion of Pacemaker Lead into Right Ventricle, Percutaneous Approach (ICD-10-PCS; 2020-03-31)
PROC: 0JH606Z Insertion of Pacemaker, Dual Chamber into Chest Subcutaneous Tissue and Fascia, Open Approach (ICD-10-PCS; 2020-03-31)
DX: I44.2 Atrioventricular block, complete (principal); I50.33 Acute on chronic diastolic (congestive) heart failure; I49.5 Sick sinus syndrome; E11.9 Type 2 diabetes mellitus without complications; I35.0 Nonrheumatic aortic (valve) stenosis; E78.5 Hyperlipidemia, unspecified; I11.0 Hypertensive heart disease with heart failure; J45.909 Unspecified asthma, uncomplicated; Z79.82 Long term (current) use of aspirin; Z79.84 Long term (current) use of oral hypoglycemic drugs; Z88.0 Allergy status to penicillin; Z95.3 Presence of xenogenic heart valve; Z79.899 Other long term (current) drug therapy; Z91.041 Radiographic dye allergy status
CPT/HCPCS: 33208; 36415; 71045; 80048; 82040; 83880; 85025; 93005; 96361; 96374; 96375; 99156; 99157; 99285; C1779; C1785; C1892; G0378; J2250; J3010; J3370; J1200; J2930; J7030

== ENCOUNTER 2020-04-02 06:50 | Emergency (ER) | payer MEDICARE ==
[~2020-04-02] VITALS: Ht 162.6 cm; Wt 93.0 kg
[~2020-04-02 06:50] MED LIST changes: +ACET325T26 PO
--- NOTE | 2020-04-02 07:06 | NUR ---
MD AT BEDSIDE FOR ASSESSMENT. PLAN OF CARE DISCUSSED. QUESTIONS ANSWERED.
--- NOTE | 2020-04-02 07:13 | NUR ---
PT COMES IN TODAY C/O SOB "I CANT LAY DOWN, I CANT BREATH" PT STATES "ITS UP IN MY THROAT, LIKE IM DROWING". PT RECENTLY HERE FOR TAVR AND PACE MAKER PLACEMENT. MD AT BEDSIDE. MONITORS CONNECTED. WARM BLANKETS PROVIDED. CALL LIGHT W/IN REACH.
[2020-04-02] MEDS ORDERED: SODIUM CHLORIDE FLUSH 10ML SYR IVF ONE (07:30)
--- NOTE | 2020-04-02 08:04 | NUR ---
PT RESTING ON GURNEY. DAUGHTER AT BEDSIDE. IV ACCESS OBTAINED. LABS COLLECTED. MED REC COMPLETE. VSS. NAD. CALL LIGHT W/IN REACH. WILL CONTINUE TO MONITOR
[2020-04-02 08:06] LABS: BASOPHILS % (AUTO) 1 % (0-1); EOSINOPHILS % (AUTO) 2 % (1-7); LYMPHOCYTES % (AUTO) 16 % (22-44); MEAN CORPUSCULAR HEMOGLOBIN 32.5 pg (27.0-34.8); MEAN CORPUSCULAR HGB CONC 33.4 g/dL (32.4-35.8); MEAN PLATELET VOLUME 8.1 fL (7.4-10.4); MONOCYTES % (AUTO) 9 % (2-9); NEUTROPHILS % (AUTO) 72 % (42-75); PLATELET COUNT 182 x10^3/uL (130-400); RED BLOOD COUNT 4.19 x10^6/uL (3.82-5.3); RED CELL DISTRIBUTION WIDTH 15.5 % (9.6-15.2)
[2020-04-02 08:08] LABS: MD NO
[2020-04-02 08:13] LABS: ALBUMIN 3.1 g/dL (3.4-5.0); ANION GAP 5 mmol/L (5-15); CALCIUM 8.8 mg/dL (8.5-10.1); CHLORIDE 107 mmol/L (98-107)
[2020-04-02 08:20] LABS: CREATININE 0.89 mg/dL (0.55-1.02); TROPONIN I 0.019 ng/mL (0.000-0.045)
[2020-04-02] MEDS ORDERED: methylPREDNISolone SOD SUCC 125 MG/2 ML IVPush STA (09:29)
[2020-04-02] MEDS ORDERED: DIPHENHYDRAMINE 50 MG/ML, 1ML IV ONE (09:30)
[2020-04-02] MEDS ORDERED: FAMOTIDINE 20 MG/2 ML IVPush ONE (09:30)
[2020-04-02] MEDS ORDERED: DIPHENHYDRAMINE 50 MG/ML, 1ML ONE (09:37)
[2020-04-02] MEDS ORDERED: methylPREDNISolone SOD SUCC 125 MG/2 ML ONE (09:37)
[2020-04-02] MEDS ORDERED: FAMOTIDINE 20 MG/2 ML ONE (09:38)
--- NOTE | 2020-04-02 09:50 | NUR ---
Pt medicated for primary RN so that CTA can be done in an effective/efficient timeframe. Pt A/O x4 with VS as documented.
--- NOTE | 2020-04-02 10:28 | NUR ---
TASK RN: PATIENT BACK FROM CT SCAN, RESTING IN ARABELLA, ANTONIO, VSS, DAUGHTER AT BEDSIDE, CALL LIGHT WITHIN REACH. WAITING FOR CT RESULTS.
--- NOTE | 2020-04-02 10:45 | NUR ---
Pt assisted to BSC with good uop noted. Assisted with pericare as well then back into bed. Daughter at bedside assisting pt with covering up with many blankets. Pt was steady on her feet, no issues with gait noted. Small dime-sized open wound that is healing, noted to L buttock. Primary RN notified of finding. Daughter states this was a known wound from RN STARS.
[2020-04-02] MEDS ORDERED: FUROSEMIDE 20 MG/2 ML ONE (11:08)
[2020-04-02] MEDS ORDERED: OMNIPAQUE 350 MG/ML, 75ML BOTTLE ONE (11:17)
[2020-04-02] MEDS ORDERED: FUROSEMIDE 20 MG/2 ML IV ONE (11:30)
--- NOTE | 2020-04-02 12:36 | NUR ---
PT TO DISCHARGE VIA WHEELCHAIR. PT AND DAUGHTER ENCOURAGED TO FOLLOWUP DISCUSSED. PT AND DAUGHTER EDUCATED TO RETURN TO THE ED W/WORSENING SYMPTOMS. PT GIVEN RX
[2020-04-02 12:37] VITALS: BP 127/66
== END 2020-04-02 12:39 | disposition home or self-care (01) ==
LOC: ED 07:29
DX: I10 Essential (primary) hypertension (principal); E11.9 Type 2 diabetes mellitus without complications; R94.31 Abnormal electrocardiogram [ECG] [EKG]; R06.02 Shortness of breath; R07.89 Other chest pain; R06.00 Dyspnea, unspecified; I48.0 Paroxysmal atrial fibrillation; R06.01 Orthopnea; Z90.49 Acquired absence of other specified parts of digestive tract; Z90.89 Acquired absence of other organs; Z90.710 Acquired absence of both cervix and uterus
CPT/HCPCS: 36415; 71045; 71275; 80048; 82040; 83880; 84484; 85025; 85379; 93005; 96374; 96375; 99285; J1200; J1940; J2930; Q9967

== ENCOUNTER → 2020-04-22 | Outpatient (CLI) | payer MEDICARE | END | disposition home or self-care (01) | LOC: CFH 08:34 | PROVIDERS: ATTEND Internal Medicine Cardiovascular Disease | DX: I37.1 Nonrheumatic pulmonary valve insufficiency (principal) | CPT/HCPCS: 93306 ==